=== PATIENT | female | born 1945 | race Hispanic/Latino ===

== ENCOUNTER → 2018-11-16 | Outpatient (CLI) | payer OTHER | END | disposition home or self-care (01) | LOC: RAH 09:35 | PROVIDERS: ATTEND Surgery | DX: K80.20 Calculus of gallbladder without cholecystitis without obstruction (principal); M51.36 Other intervertebral disc degeneration, lumbar region; K43.9 Ventral hernia without obstruction or gangrene | CPT/HCPCS: 74176 ==

== ENCOUNTER 2023-04-13 04:51 | Observation (INO) | payer MEDICARE ==
[2023-04-08 11:25] VITALS: BP 161/65; PULSE 65; RESP 12
[2023-04-13] VITALS (25 sets, daily range): BP systolic 111–167; BP diastolic 52–85; PULSE 55–88; RESP 14–19
[~2023-04-13] VITALS: Ht 162.6 cm; Wt 107.5 kg
[~2023-04-13 04:51] MED LIST: GABA-529 PO; OMEP20CA12 PO; OXYB5TAB20 PO
[2023-04-13] MEDS ORDERED: LACTATED RINGERS 1000ML 1,000 ML IV ONE (05:23)
[2023-04-13] MEDS ORDERED: CEFAZOLIN SODIUM 2 GM VIAL ONE (05:24)
[2023-04-13] MEDS ORDERED: 0.9%NACL 100ML 48.45 ML, ROPIVACAINE 0.5% 5MG/ML 30ML 246.25 MG, KETOROLAC TROMETHAMINE... IV PRN ×5 (07:30)
[2023-04-13] MEDS ORDERED: MIDAZOLAM HCL 1 MG/ML 2ML VIAL ONE ×2 (08:32→10:31)
[2023-04-13] MEDS ORDERED: PROPOFOL 10 MG/ML 20ML VIAL IV ONE (08:33)
[2023-04-13] MEDS ORDERED: FENTANYL CITRATE PF 50 MCG/1 ML 2ML VIAL ONE (08:33)
[2023-04-13] MEDS ORDERED: ONDANSETRON 4MG INJ ONE (08:36)
[2023-04-13] MEDS ORDERED: DEXAMETHASONE SOD PHOSPHATE 10MG/ML 1ML VIAL ONE (08:37)
[2023-04-13] MEDS ORDERED: TRANEXAMIC ACID 1000MG/10ML ONE (09:51)
[2023-04-13] MEDS ORDERED: CEFAZOLIN SODIUM 1 GM VIAL ONE (09:52)
[2023-04-13] MEDS ORDERED: GENTAMICIN SULFATE 80 MG/2 ML VIAL ONE (09:52)
[2023-04-13] MEDS ORDERED: DIPHENOXYLATE HCL/ATROPINE 2.5/0.025 MG TAB PO PRN (15:00)
[2023-04-13] MEDS ORDERED: ACETAMINOPHEN WITH CODEINE 1 TAB TAB PO PRN (15:00)
[2023-04-13] MEDS ORDERED: MAG/ALUM/SIMETH 30 ML UDCUP PO PRN (15:00)
[2023-04-13] MEDS ORDERED: LACTULOSE 20 GM/30 ML UDCUP PO PRN (15:00)
[2023-04-13] MEDS ORDERED: BENZOCAINE/MENTH/CETYLPYRD CL 1 EACH LOZENGE MM PRN (15:00)
[2023-04-13] MEDS: 0.9%NACL 1000ML 1,000 ML IV SCH (15:00)
[2023-04-13] MEDS ORDERED: DIPHENHYDRAMINE HCL 25 MG CAPSULE PO PRN (15:00)
[2023-04-13] MEDS ORDERED: ACETAMINOPHEN 325 MG TAB PO PRN ×2 (15:00)
[2023-04-13] MEDS ORDERED: ONDANSETRON 4MG INJ IVP PRN (15:00)
[2023-04-13] MEDS ORDERED: TRAMADOL HCL 50 MG TABLET PO PRN (15:00)
[2023-04-13] MEDS: HYDROMORPHONE PCA 10 MG/50 ML 50 ML IV PRN ×2 (19:17→19:18)
[2023-04-13] MEDS ORDERED: DEXTROSE 50%-WATER 50 ML DISP.SYRIN IV PRN (20:30)
[2023-04-13] MEDS ORDERED: GLUCAGON 1MG KIT 1 MG ML IM PRN (20:30)
[2023-04-13] MEDS ORDERED: INSULIN HUMULIN R 100 UNIT/ML 3ML SQ SCH (21:00)
[2023-04-13] MEDS: CEFAZOLIN SODIUM 2 GM VIAL IVPB SCH (22:38)
[2023-04-14 00:05] VITALS: BP 121/53; PULSE 61; RESP 18
[2023-04-14] MEDS: CEFAZOLIN SODIUM 2 GM VIAL IVPB SCH (03:39)
[2023-04-14] MEDS: 0.9%NACL 1000ML 1,000 ML IV SCH ×2 (03:43→09:18)
[2023-04-14 03:59] VITALS: BP 119/53; PULSE 66; RESP 18
[2023-04-14 05:44] LABS: HEMATOCRIT 36.2 % (36-48); MEAN CORPUSCULAR HEMOGLOBIN 30.4 pg (27.0-33.0); MEAN CORPUSCULAR HGB CONC 32.6 g/dL (32.0-36.0); MEAN CORPUSCULAR VOLUME 93.3 fL (79-99); RED BLOOD CELL COUNT(AUTO) 3.88 MIL/uL (4.00-5.50); RED CELL DISTRIBUTION WIDTH 12.5 % (11.0-15.5); WHITE BLOOD COUNT (AUTO) 11.5 K/uL (4.8-10.8)
[2023-04-14 05:50] LABS: CREATININE 0.7 mg/dL (0.5-1.5); POTASSIUM 3.8 mmol/L (3.5-5.1)
[2023-04-14 08:00] VITALS: BP 117/67; PULSE 81; RESP 18; O2SAT 94
[2023-04-14] MEDS: HYDROCODONE/ACETAMINOPHEN 5/325 MG TAB PO PRN ×2 (08:56→14:40)
[2023-04-14 11:35] VITALS: BP 110/53; PULSE 65; RESP 18
[2023-04-14 16:00] VITALS: BP 105/50; PULSE 79; RESP 18
== END 2023-04-14 19:45 | disposition home health service (06) ==
LOC: DAH 04:51 → 4BH 04:52 → DAH 04:52
PROVIDERS: ADMIT Orthopaedic Surgery; ATTEND Orthopaedic Surgery
DX: M17.11 Unilateral primary osteoarthritis, right knee (principal); E66.01 Morbid (severe) obesity due to excess calories; E11.9 Type 2 diabetes mellitus without complications; E78.00 Pure hypercholesterolemia, unspecified; K21.9 Gastro-esophageal reflux disease without esophagitis; M25.561 Pain in right knee; M81.0 Age-related osteoporosis without current pathological fracture; Z68.41 Body mass index [BMI] 40.0-44.9, adult; Z96.651 Presence of right artificial knee joint; Z98.84 Bariatric surgery status; Z98.891 History of uterine scar from previous surgery; Z79.899 Other long term (current) drug therapy; Z98.890 Other specified postprocedural states
CPT/HCPCS: 87641; 27447; 96365; 96375; 97161; 97012; 96366; 80048; 85027; 36415; 97116 ×2; 97530; A6260; G0378 ×28; G0379; A4663; J7120 ×2; A4215 ×2; A4649 ×4; J3010; J0690 ×4; J3490; J1170; J1100; J1580; J2250 ×2; J2704; J2405; A6223; C1763 ×2; C1776; A5120; A4223; A4222; A4221; A6450; J7030; A4510; 97039

== ENCOUNTER → 2023-06-10 | Outpatient (CLI) | payer MEDICARE ==
[2023-06-10 21:54] VITALS: PULSE 66; RESP 12
[2023-06-10 22:32] VITALS: PULSE 55; RESP 14
[2023-06-10 23:02] VITALS: PULSE 64; RESP 18
[2023-06-10 23:34] VITALS: PULSE 78; RESP 12
[2023-06-11] VITALS (11 sets, daily range): PULSE 56–71; RESP 10–20
== END | disposition home or self-care (01) ==
LOC: SLP 10:00
PROVIDERS: ATTEND Family Medicine
DX: G47.33 Obstructive sleep apnea (adult) (pediatric) (principal); E66.01 Morbid (severe) obesity due to excess calories; Z68.43 Body mass index [BMI] 50.0-59.9, adult
CPT/HCPCS: 95810

== ENCOUNTER → 2023-08-19 | Outpatient (CLI) | payer MEDICARE ==
[2023-08-19] VITALS (8 sets, daily range): PULSE 57–67; RESP 13–23
[2023-08-20] VITALS (13 sets, daily range): PULSE 55–63; RESP 11–18
== END | disposition home or self-care (01) ==
LOC: SLP 20:35
PROVIDERS: ATTEND Family Medicine
DX: G47.33 Obstructive sleep apnea (adult) (pediatric) (principal)
CPT/HCPCS: 95811

== ENCOUNTER → 2024-06-28 | Outpatient (CLI) | payer MEDICARE ==
--- NOTE | 2024-06-28 15:24 | HMCIMG ---
THORACIC SPINE 2VWS REASON: THORACIC BACK PAIN COMPARISON: None. TECHNIQUE: 2 images were obtained. FINDINGS: There are mild anterior and right lateral osteophyte. Interspace heights are preserved. Alignment is normal. There are no compression or other fractures. Stranding soft tissues appear normal. IMPRESSION: 1. Mild thoracic degenerative change, no acute finding.
--- NOTE | 2024-06-28 15:24 | HMCIMG ---
EXAM: LUMBAR SPINE 2-3VWS REASON: LBP. COMPARISON: None. TECHNIQUE: 2 views of the lumbar spine were obtained. FINDINGS: There is 5 mm anterior subluxation of L3 in relation to L2. There is mild interspace narrowing at L1-2, L2-3 and at L5-S1. Alignment is otherwise normal. There are some degenerative changes in the facets. There are no compression or other fractures. Soft tissues appear unremarkable. IMPRESSION: 1. Moderate lumbar degenerative changes, there is also 5 mm anterior subluxation of L3 in relation to L2.
== END | disposition home or self-care (01) ==
LOC: RAH 14:42
PROVIDERS: ATTEND Internal Medicine
DX: S33.120A Subluxation of L2/L3 lumbar vertebra, initial encounter (principal); M47.814 Spondylosis without myelopathy or radiculopathy, thoracic region; M85.88 Other specified disorders of bone density and structure, other site; M54.6 Pain in thoracic spine; M47.816 Spondylosis without myelopathy or radiculopathy, lumbar region; M54.50 Low back pain, unspecified; X58.XXXA Exposure to other specified factors, initial encounter; Y93.89 Activity, other specified; Y92.89 Other specified places as the place of occurrence of the external cause; Y99.8 Other external cause status
CPT/HCPCS: 72070; 72100

== ENCOUNTER → 2025-01-02 | Outpatient (CLI) | payer MEDICARE ==
--- NOTE | 2025-01-03 11:33 | HMCIMG ---
CHEST 2VWS REASON: PRE-OP EXAM FOR INTERNAL MEDICINE COMPARISON: None FINDINGS: Two views of the chest were obtained. Lungs are clear. Heart size is normal. There is no pulmonary vascular congestion. Mediastinum and bony thorax appear unremarkable. IMPRESSION: Normal two view chest x-ray.
== END | disposition home or self-care (01) ==
LOC: RAH 13:40
PROVIDERS: ATTEND Internal Medicine
DX: Z01.818 Encounter for other preprocedural examination (principal)
CPT/HCPCS: 71046

== ENCOUNTER → 2025-01-16 | Outpatient (CLI) | payer MEDICARE ==
--- NOTE | 2025-01-16 19:41 | HMCIMG ---
ANKLE 2VWS RT HISTORY: Puncture wound COMPARISON: None TECHNIQUE: 2 images of the right ankle were obtained. FINDINGS: There is no acute displaced fracture or dislocation. There is soft tissue swelling. There is a calcaneal spur. No evidence of radiopaque foreign body is seen. Degenerative changes are seen. IMPRESSION: 1. Findings as described above.
== END | disposition home or self-care (01) ==
LOC: RAH 15:02
PROVIDERS: ATTEND Internal Medicine
DX: S91.031A Puncture wound without foreign body, right ankle, initial encounter (principal); M19.071 Primary osteoarthritis, right ankle and foot; M77.31 Calcaneal spur, right foot; M79.89 Other specified soft tissue disorders; X58.XXXA Exposure to other specified factors, initial encounter; Y93.89 Activity, other specified; Y92.89 Other specified places as the place of occurrence of the external cause; Y99.8 Other external cause status
CPT/HCPCS: 73600

== ENCOUNTER → 2025-06-07 | Outpatient (CLI) | payer MEDICARE ==
--- NOTE | 2025-06-07 15:50 | HMCIMG ---
EXAM: US for Deep Venous Thrombosis, bilateral Lower Extremity. CLINICAL HISTORY: Leg Pain and Swelling TECHNIQUE: Real-time ultrasound scan of the veins of the bilateral lower extremity with color Doppler flow, spectral waveform analysis and compression. COMPARISON: None provided. FINDINGS: DEEP VEINS: The common femoral, superficial femoral, and popliteal veins are echolucent and compressible. There is normal color Doppler flow throughout. The visualized calf veins appear patent. SOFT TISSUES: No popliteal fossa cyst or other abnormalities. IMPRESSION: 1. No evidence of deep venous thrombosis in the bilateral lower extremities. /[place]
== END | disposition home or self-care (01) ==
LOC: RAH 07:43
PROVIDERS: ATTEND Internal Medicine
DX: I82.403 Acute embolism and thrombosis of unspecified deep veins of lower extremity, bilateral (principal); M79.604 Pain in right leg; M79.605 Pain in left leg
CPT/HCPCS: 93970

== ENCOUNTER → 2025-06-26 | Outpatient (CLI) | payer MEDICARE ==
[~2025-06-26] MED LIST changes: +LANS30CA55 PO; +MELATONIN PO; +MELO-108 PO; +RISE35TA12 PO; +TYLENOL ARTHRITIS PO
--- NOTE | 2025-06-26 19:35 | HMCIMG ---
STUDY: X-RAY OF THE CHEST, 2 VIEWS HISTORY: Pre-operative examination for internal medicine. TECHNIQUE: PA and lateral views of the chest are submitted for interpretation. COMPARISON: None provided. FINDINGS: Pulmonary edwards: Left basilar airspace opacity is present, which may represent atelectasis and/or early pneumonia in the appropriate clinical setting. The right lung is clear. No overt pulmonary edema is identified. No pleural-based mass or pneumothorax is seen. Cardiac silhouette: Cardiac silhouette is within normal limits in size and contour. Mediastinum and [place]: Mediastinal contours and hilar structures are within normal limits without evidence of mediastinal widening or discrete hilar mass. Osseous structures: Visualized ribs, clavicles, scapulae, and thoracic spine demonstrate no acute displaced fracture or destructive osseous lesion. Miscellaneous: Costophrenic angles are sharp on the right and mildly obscured on the left due to the adjacent basilar opacity; a very small left pleural effusion cannot be excluded. No subdiaphragmatic free air is identified. No indwelling lines or tubes are seen. IMPRESSION: * Left basilar airspace opacity, most likely representing atelectasis or early infectious/inflammatory airspace disease; correlate with clinical symptoms, auscultatory findings, and inflammatory markers. * No radiographic evidence of pulmonary edema, sizable pleural effusion, or pneumothorax. * Cardiac silhouette is normal in size and contour without radiographic cardiomegaly. * No acute osseous abnormality of the visualized bony thorax. * From a thoracic imaging standpoint, there is no contraindication to proceeding with surgery; however, if the patient has respiratory symptoms or systemic signs of infection, clinical assessment should determine whether further evaluation (such as short-interval follow-up chest radiograph or chest CT) or perioperative modification is warranted. /[place]
== END | disposition home or self-care (01) ==
LOC: RAH 16:16
PROVIDERS: ATTEND Internal Medicine
DX: Z01.818 Encounter for other preprocedural examination (principal)
CPT/HCPCS: 71046

== ENCOUNTER 2025-07-03 06:24 | Observation (INO) | payer MEDICARE ==
--- NOTE | 2025-06-27 15:55 | EKG ---
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
[2025-06-27 16:00] VITALS: BP 141/65; PULSE 67; RESP 14; TEMP 97.9
--- NOTE | 2025-06-27 16:16 | NUR ---
PREOP ZBIGNIEW VORA INSTRUCTED PT ON INCENTIVE SPIROMETRY
--- NOTE | 2025-06-28 13:07 | NUR ---
RE: EKG reported ekg results to dr mendieta, no new orders received.
[~2025-07-03] VITALS: Ht 162.6 cm; Wt 108.9 kg
[2025-07-03] VITALS (25 sets, daily range): BP systolic 120–170; BP diastolic 50–88; PULSE 58–74; RESP 16–20; TEMP 97–98; O2SAT 90–96
[2025-07-03] MEDS ORDERED: LIDOCAINE HCL MPF 1% 5ML VIAL ONE (07:42)
[2025-07-03] MEDS ORDERED: MIDAZOLAM HCL 1 MG/ML 2ML VIAL ONE (07:43)
[2025-07-03] MEDS: LACTATED RINGERS 1000ML 1,000 ML IV ONE (08:13)
[2025-07-03] MEDS: TRANEXAMIC ACID 1000MG/10ML ONE (09:10)
[2025-07-03] MEDS ORDERED: PROMETHAZINE HCL 25 MG/ML 1ML AMPULE IM PRN (09:30)
[2025-07-03] MEDS: TRANEXAMIC ACID 1000MG/10ML IV ONE ×2 (10:57)
[2025-07-03] MEDS ORDERED: NEOSTIGMINE METHYLSULFATE 1MG/ML IV ONE (11:03)
[2025-07-03] MEDS ORDERED: GLYCOPYRROLATE 0.2 MG/ML 5 ML VIAL ONE (11:03)
[2025-07-03] MEDS ORDERED: MELOXICAM 7.5 MG TABLET PO PRN (11:30)
[2025-07-03] MEDS ORDERED: RISEDRONATE SODIUM 35 MG PO SCH (11:30)
[2025-07-03] MEDS ORDERED: PoTASSium chloRIDE 20MEQ ER 20 MEQ ERTAB PO PRN (11:30)
[2025-07-03] MEDS ORDERED: PoTASSium chl 10% ELIXIR 20MEQ 20 MEQ/15 ML UDCUP PO PRN (11:30)
--- NOTE | 2025-07-03 13:00 | NUR ---
RECIEVED PACU TOTAL LEFTKNEE SRINIVAS WRAP INTACT CLEAN DRY RESPONSIVE TO VERBAL COMMAND ALERT CALL HICKEY WITH IN REACH
--- NOTE | 2025-07-03 13:25 | HMCIMG ---
EXAM: CR Left Knee, 2 View. CLINICAL HISTORY: S/P LEFT TKA SURGERY COMPARISON: None provided. FINDINGS: Left total knee arthroplasty in near anatomic alignment. No periprosthetic fracture appreciated. Appropriate postsurgical changes within the distal thigh and proximal leg. IMPRESSION: 1. Left total knee arthroplasty in near anatomic alignment without periprosthetic fracture. /[place]
[2025-07-03] MEDS: 0.9%NACL 1000ML 1,000 ML IV SCH (13:38)
--- NOTE | 2025-07-03 14:45 | OP ---
Operative Note: DATE OF PROCEDURE: 07/03/25 PREOPERATIVE DIAGNOSIS: Left knee osteoarthritis. POSTOPERATIVE DIAGNOSIS: Left knee osteoarthritis. PROCEDURE PERFORMED: Left knee total knee arthroplasty. SURGEON: Jennifer Drake MD COMMUNICATIONS ASSISTANT: January Lewis. ANESTHESIA: General with adductor canal block. ANESTHESIA: WES Singer. ESTIMATED BLOOD LOSS: 50cc. COMPLICATIONS: None. DRAINS: None. SPECIMENS REMOVED: resected bone. Not sent to pathology. IMPLANTS: [employer] II BCS size 6 Oxinium femur, size 4 tibial base plate, 32 mm patella, 9 mm polyethylene STATEMENT OF MEDICAL NECESSITY: The patient is a 79-year-old female who suffers from left knee osteoarthritis failing conservative management. After discussion of the risks, benefits, and alternatives with the patient, they voluntarily agreed to undergo the aforementioned procedure. DESCRIPTION OF PROCEDURE: Patient was properly identified in the preoperative holding area. Surgical site marking was verified and surgery consent reviewed. The patient was then taken to the operating room and placed in supine position o n the OR table. After induction of general anesthesia, preoperative antibiotics were given, all bony prominences were well-padded, and a well padded tourniquet was applied but not inflated at this time. The left lower extremity was then prepped and draped in usual sterile fashion. Surgical time out was done verifying correct surgery, side, site, and location to be performed. We then began the procedure by exsanguinating the limb using an Esmarch and inflating the tourniquet to 350 mmHg. At this point, we made an anterior midline incision using a 10 blade, coming down sharply the level of the fascia. Skin flaps were elevated medially and laterally. We then obtained a clean 10 blade and performed a standard medial parapatellar arthrotomy. We excised the infrapatellar fat pad. We performed our soft tissue releases off of the tibia. We transected the ACL and removed the anterior portion of the medial & lateral meniscus. We then brought the knee into hyperflexion with the patella everted. We used our entry reamer to enter the femoral canal. We then placed our intramedullary cutting guide for our distal femoral cutting block. We then performed our distal femoral osteotomy ensuring appropriate rotation and removed the bony wafer. However, secondary to inadequate distal femoral resection, we elected to go ahead and take +2 mm this time. We then removed these pins and block and then used jig 2 to size the distal femur with the after mentioned size found. We then placed our 5-in-1 cutting block in 3 degrees of external rotation and took our 5 cuts ensuring to protect the patellar tendon and the collateral ligaments. We then removed the cutting block and our bony fragments using a curved osteotome. We then placed our PCL retractor subluxating the tibia anteriorly. Using an extra medullary tibial cutting guide, we hung the block for our proximal tibial cut taking 2 mm off the more diseased portion. Prior to pinning this block in place, we ensured appropriate varus/valgus alignment and posterior slope similar to the koi slope of the patient's knee. We then performed our proximal tibial osteotomy and removed the bony wafer using Bovie electrocautery to release any remaining soft tissue attachments. We then used our tibial sizing paddle and checked once more for varus & valgus alignment and found this to be appropriate. At this point, we pinned our tibial paddle in place. We then removed the PCL retractor and subluxated the tibia posteriorly while we placed our femoral trial component. We then finished preparing the notch with the reamer and box chisel. The notch portion of the trial femoral component was then placed. A posterior stabilized polyethylene, size 9 trial was placed. The knee was then taken through range of motion and found to have stable full range of motion. We then placed a bump under the ankle and everted the patella to perform our freehand cut of the undersurface the patella. We then sized our patella and reamed to the lug holes for this. We placed our trial patellar component and begin to take the knee through range of motion. The patella had significant lateral tracking with the improvement after a large lateral release. At this point we began removing our trial components and punched the tibial keel prior to removing our tibial trial component. Final components were opened and cement was mixed on the back table while we injected local cocktail in the posterior capsule. We then thoroughly irrigated out the bone and dried the bony surfaces. We cemented our tibial component in place ensuring to remove excess cement and placed our trial polyethylene. We then cemented our femoral component in place once again taking time to ensure excess cement was removed leg was brought into full extension to help squeeze the excess cement from around the femoral component. We then brought the knee back in a flexion to remove this portion of the cement at this point we placed the ankle in a bump thoroughly irrigated off the patellar component and cemented our patellar component in standard fashion again removing excess cement. While we waited for the cement to cure, we thoroughly irrigated out the wound with normal saline. Once our cement had cured, we took the knee through a range of motion and found full and stable range of motion. We then elected to use the size 9 polyethylene and removed our trial polyethylene. We impacted our final polyethylene component in place in standard fashion and took the knee through a range of motion check once more. This was satisfactory so we began to repair the arthrotomy using #5 Ethibond and #1 Vicryl in interrupted [id number] fashion. Subcutaneous tissue was repaired using 2-0 Vicryl. Running subcuticular 3-0 Monocryl stitch with Dermabond placed over this for the skin. We then applied a foam barrier dressing and a pressure dressing consisting of 4 x 4's fluffs and an Zane wrap. The tourniquet was then deflated. Patient was awakened from anesthesia, and they were taken to the recovery room in stable condition. JENNIFER DRAKE MD Jul 03, 2025 14:45
[2025-07-03] MEDS: HYDROcodone/APAP 5/325 1 TAB TABLET PO PRN (15:28)
--- NOTE | 2025-07-03 15:30 | NUR ---
ORTHO COORDINATOR: RESPIRATORY THERAPY IN ROOM. LEFT UNDISTURBED.
[2025-07-03] MEDS: CYCLOBENZAPRINE HCL 10 MG TABLET PO PRN (21:33)
[2025-07-04] VITALS: BP 115/61; PULSE 59; RESP 18; TEMP 98.1
[2025-07-04 04:00] VITALS: BP 130/62; PULSE 60; RESP 19; TEMP 97.9
[2025-07-04 04:43] LABS: NUCLEATED RED BLOOD CELLS 0.0 % (0.0-0.19); PLATELET COUNT (AUTO) 218.0 K/uL (130-400); RED BLOOD CELL COUNT(AUTO) 3.68 MIL/uL (4.00-5.50); RED CELL DISTRIBUTION WIDTH 12.4 % (11.0-15.5); WHITE BLOOD COUNT (AUTO) 10.8 K/uL (4.8-10.8)
[2025-07-04 04:53] LABS: CREATININE 0.7 mg/dL (0.5-1.0); GLOMERULAR FILTR. RATE CALC 89.0 mL/min (>90); GLUCOSE,RANDOM 100.0 mg/dL (70-105); SODIUM SERUM 138.0 mmol/L (136-145); UREA NITROGEN, BLOOD 15.0 mg/dL (7-18)
[2025-07-04 07:00] VITALS: O2SAT 96
--- NOTE | 2025-07-04 07:20 | PN ---
PROGRESS NOTE PROGRESS NOTE DATE OF PROGRESS NOTE: 07/04/25 SUBJECTIVE: Status post knee replacement doing well VITAL SIGNS Vital Signs Date Time Temp Pulse Resp B/P (MAP) Pulse Ox O2 Delivery O2 Flow Rate FiO2 07/04/25 07:00 96 Room Air* 0 21 07/04/25 04:00 97.9 60 19 130/62 PHYSICAL EXAM: HEENT atraumatic normocephalic head Neck is supple Lungs are clear to auscultation percussion Heart was S1-S2 heard no murmur Extremities no pedal edema Skin exam unremarkable LABORATORY: Laboratory Result(s) Test 07/04/25 04:05 White Blood Count 10.8 K/uL (4.8-10.8) Red Blood Count 3.68 MIL/uL (4.00-5.50) Hemoglobin 11.2 g/dL (12.0-16.0) Hematocrit 33.9 % (36-48) Mean Corpuscular Volume 92.1 fL (79-99) Mean Corpuscular Hemoglobin 30.4 pg (27.0-33.0) Mean Corpuscular Hemoglobin Concent 33.0 g/dL (32.0-36.0) Red Cell Distribution Width 12.4 % (11.0-15.5) Platelet Count 218 K/uL (130-400) Mean Platelet Volume 8.9 fL (7.5-10.5) Nucleated Red Blood Cells 0.0 % (0.0-0.19) Sodium Level 138 mmol/L (136-145) Potassium Level 4.1 mmol/L (3.5-5.1) Chloride Level 105 mmol/L (101-111) Carbon Dioxide Level 28 mmol/L (21-32) Blood Urea Nitrogen 15 mg/dL (7-18) Creatinine 0.7 mg/dL (0.5-1.0) Glomerular Filtration Rate Calc 89 mL/min (>90) Random Glucose 100 mg/dL (70-105) Total Calcium 7.9 mg/dL (8.5-10.1) INPATIENT MEDS: Current Medications Medications Dose Ordered Sig/Jaron Start Time Stop Time Status Last Admin Sodium Chloride 1,000 ml @ 100 mls/hr Q10H 07/03/25 11:30 07/04/25 11:29 07/04/25 04:22 Polyethylene Glycol 17 gm DAILY 07/04/25 09:00 08/03/25 08:59 Bisacodyl 10 mg DAILY PRN 07/06/25 11:30 08/05/25 11:29 Ketorolac Tromethamine 15 mg Q6H PRN 07/04/25 11:30 07/09/25 11:29 Ferrous Fumarate 324 mg DAILY PRN 07/03/25 11:30 08/02/25 11:29 Ondansetron HCl 4 mg Q6H PRN 07/03/25 11:30 08/02/25 11:29 Calcium Carbonate 500 mg Q12H PRN 07/03/25 11:30 08/02/25 11:29 Cyclobenzaprine HCl 5 mg Q8H PRN 07/03/25 11:30 08/02/25 11:29 07/03/25 21:33 Gabapentin 100 mg TID 07/03/25 14:00 08/02/25 13:59 07/03/25 21:33 Aspirin 325 mg DAILY 07/04/25 09:00 08/03/25 08:59 Docusate Sodium 100 mg BID 07/03/25 21:00 08/02/25 20:59 07/03/25 21:33 Potassium Chloride 100 ml @ 100 mls/hr AD PRN 07/03/25 11:30 08/02/25 11:29 Potassium Chloride 20 meq AD PRN 07/03/25 11:30 08/02/25 11:29 Potassium Chloride 20 meq AD PRN 07/03/25 11:30 08/02/25 11:29 Tramadol HCl 50 mg Q6H PRN 07/03/25 11:30 07/08/25 11:29 Acetaminophen/ Hydrocodone Bitart Q4H PRN 07/03/25 11:30 07/08/25 11:29 07/03/25 21:34 Meloxicam 15 mg DAILY PRN 07/03/25 11:30 08/02/25 11:29 Home Med WEEKLY 07/03/25 11:30 08/02/25 11:29 Home Med HS PRN 07/03/25 11:30 08/02/25 11:29 Pantoprazole Sodium 40 mg DAILY 07/04/25 09:00 08/03/25 08:59 PLAN: Hypertension resume same home medication postop pain supportive treatment discharged once cleared by EDUARDO Verduzco MD Jul 04, 2025 07:20
[2025-07-04] MEDS: FERROUS FUMARATE 324 MG TABLET PO PRN (07:33)
[2025-07-04] MEDS: ASPIRIN 325MG EC TAB PO SCH (07:34)
[2025-07-04 08:00] VITALS: BP 128/70; PULSE 70; RESP 16; TEMP 98.3
--- NOTE | 2025-07-04 11:10 | NUR ---
DCP CM MET WITH PT THIS MORNING, INITIAL ASSESSMENT DONE. PATIENT IS INDEPENDENT PRIOR TO SURGERY, LIVES AT HOME WITH SPOUSE. 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 DENIES ANY OTHER EQUIPMENT/SERVICES. FEELS SAFE TO GO BACK HOME, STILL DRIVE, ABLE TO ASSIST WITH TRANSPORTATION AND NEEDS NECESSARY. DISCUSSED MD RECOMMENDATIONS FOR HOME W/HH PT ALREADY HAS DME, PT AGREEABLE, CONSENT SIGNED CARMEN FOR ANY IN NETWORK HH. DCP HOME W/HH ONCE APPROVED. CM TO CONTINUE TO FOLLOW UP.
[2025-07-04] MEDS: CALCIUM CARB 500MG PO PRN (11:39)
[2025-07-04 12:00] VITALS: BP 100/51; PULSE 66; RESP 16; TEMP 98.3
--- NOTE | 2025-07-04 14:11 | NUR ---
dc sl to lac cath intact dressing to removal site to [facility] dc instructions given verbal understanding dc papers signed [facility] awaiting [facility]
[2025-07-04 16:00] VITALS: BP 129/63; PULSE 76; RESP 18; TEMP 98.3
--- NOTE | 2025-07-04 16:45 | NUR ---
ORTHO COORDINATOR: TEACHING REGARDING DVT AND PNEUMONIA PREVENTION, PAIN EXPECTATIONS AND PAIN MANAGEMENT. PATIENT UP TO CHAIR, EATING DINNER, SPOUSE AT BEDSIDE. DRESSING TO L KNEE CLEAN, DRY AND INTACT. PATIENT RETURN DEMONSTRATED PROPER USE OF INCENTIVE SPIROMETER AND VERBALIZED PROPER FREQUENCY OF USE. PATIENT RETURN DEMONSTRATED PROPER FOOT FLEXION AND EXTENSION EXERCISES, RATIONALE FOR PERFORMING REVIEWED. PATIENT INTENDS TO DISCHARGE HOME WITH HOME HEALTH. HOME HEALTH PROCESS EXPLAINED. PATIENT ENCOURAGED TO CONTINUE PREMEDICATING PRIOR TO PHYSICAL THERAPY AND PERIODS OF HIGH ACTIVITY, TO CONTINUE USE OF INCENTIVE SPIROMETER UNTIL PRESURGERY ACTIVITY LEVELS ACHIEVED, TO CONTINUE TO INCREASE ACTIVITY, KEEP HYDRATED AND ICE SURGICAL SITE. PATIENT INFORMED DISCHARGE INSTRUCTIONS WILL HAVE THE DATE THE DRESSING IS TO BE REMOVED. PATIENT AND FEEL COMFORTABLE REMOVING DRESSING. SHOWERING AND INCISION CARE REVIEWED. PATIENT VERBALIZED UNDERSTANDING TO ALL INSTRUCTIONS. NO ADDITIONAL QUESTIONS OR CONCERNS AT THIS TIME.
--- NOTE | 2025-07-04 17:38 | NUR ---
dc sl to lh cath intact dressing to removal site josé well dc instructions given verbal understanding dc papers signed escorted off unit via wc to front of hospital stable cond,
--- NOTE | 2025-07-04 19:18 | PN ---
Ortho POD 1 - late entry seen around noon Doing well. Reports pain controlled. Reports incontinent voiding at time of bathing. Tolerating PO. Denies BM or calf pain. Denies passing gas vss,af nad, A&Ox3 nonlabored breathing resting comfortably reclined in bed at the time of my visit. left knee dressing c/d/i with mild ecchymosis and moderate edema tolerates full extension with cueing calf soft NT/neg homans H&H: Calcium 7.9 DCP is for HHPT with APC accepted Ambulated 25 ft with PT yesterday POD 1 s/p L TKA doing well asymptomatic acute blood loss anemia -correct calcium per protocol -encouraged IS and OOBTC -encouraged walking to move bowels -continue my routine post op plan for TKA Vitals/Labs Vital Signs Date Time Temp Pulse Resp B/P (MAP) Pulse Ox O2 Delivery O2 Flow Rate FiO2 07/04/25 16:00 98.2 76 18 129/63 96 Room Air 07/04/25 07:00 0 21 Laboratory Tests 07/04/25 04:05 Medications Current Medications Cefazolin Sodium 2 gm STK-MED ONCE .ROUTE Last administered on 07/03/25at 09:05; Start 07/03/25 at 06:30; Stop 07/03/25 at 06:30; Status DC Lactated Ringer's 1,000 ml @ As Directed STK-MED ONCE IV Last administered on 07/03/25at 08:13; Start 07/03/25 at 06:30; Stop 07/03/25 at 06:30; Status DC Lidocaine HCl 5 ml STK-MED ONCE .ROUTE; Start 07/03/25 at 07:42; Stop 07/03/25 at 07:42; Status DC Dexamethasone Sodium Phosphate 4 mg STK-MED ONCE .ROUTE; Start 07/03/25 at 07:42; Stop 07/03/25 at 07:42; Status DC Ondansetron HCl 4 mg STK-MED ONCE .ROUTE; Start 07/03/25 at 07:42; Stop 07/03/25 at 07:42; Status DC Midazolam HCl 2 mg STK-MED ONCE .ROUTE; Start 07/03/25 at 07:43; Stop 07/03/25 at 07:43; Status DC Propofol 200 mg STK-MED ONCE IV; Start 07/03/25 at 07:43; Stop 07/03/25 at 07:43; Status DC Rocuronium [place] 50 mg STK-MED ONCE .ROUTE; Start 07/03/25 at 07:44; Stop 07/03/25 at 07:44; Status DC Fentanyl Citrate 100 mcg STK-MED ONCE .ROUTE; Start 07/03/25 at 07:44; Stop 07/03/25 at 07:44; Status DC Ropivacaine 150 mg STK-MED ONCE .ROUTE; Start 07/03/25 at 07:47; Stop 07/03/25 at 07:47; Status DC Acetaminophen 100 ml @ As Directed STK-MED ONCE .ROUTE; Start 07/03/25 at 07:47; Stop 07/03/25 at 07:47; Status DC Tranexamic Acid 1,000 mg STK-MED ONCE .ROUTE Last administered on 07/03/25at 09:10; Start 07/03/25 at 08:18; Stop 07/03/25 at 08:18; Status DC Ketorolac Tromethamine 30 mg STK-MED ONCE .ROUTE Last administered on 07/03/25at 10:22; Start 07/03/25 at 08:19; Stop 07/03/25 at 08:19; Status DC Ropivacaine 150 mg STK-MED ONCE .ROUTE Last administered on 07/03/25at 10:22; Start 07/03/25 at 08:19; Stop 07/03/25 at 08:19; Status DC Ondansetron HCl 4 mg AD PRN IVP; Start 07/03/25 at 09:30; Stop 07/03/25 at 12:55; Status DC Metoclopramide HCl 10 mg AD PRN IVP; Start 07/03/25 at 09:30; Stop 07/03/25 at 12:55; Status DC Promethazine HCl 25 mg AD PRN IM; Start 07/03/25 at 09:30; Stop 07/03/25 at 12:55; Status DC Ketorolac Tromethamine 30 mg AD PRN IV; Start 07/03/25 at 09:30; Stop 07/03/25 at 12:55; Status DC Morphine Sulfate 2 mg AD PRN IVP; Start 07/03/25 at 09:30; Stop 07/03/25 at 12:55; Status DC Fentanyl Citrate 25 mcg Q5MIN PRN IVP Last administered on 07/03/25at 12:06; Start 07/03/25 at 09:30; Stop 07/03/25 at 12:55; Status DC Naloxone HCl 0.1 mg AD PRN IVP; Start 07/03/25 at 09:30; Stop 07/03/25 at 12:55; Status DC Tranexamic Acid 1,000 mg STK-MED ONCE IV; Start 07/03/25 at 00:00; Stop 07/03/25 at 00:01; Status Cancel Fentanyl Citrate 100 mcg STK-MED ONCE .ROUTE; Start 07/03/25 at 10:38; Stop 07/03/25 at 10:38; Status DC Tranexamic Acid 1,000 mg STK-MED ONCE IV Last administered on 07/03/25at 10:57; Start 07/03/25 at 10:57; Stop 07/03/25 at 10:58; Status DC Glycopyrrolate 1 mg STK-MED ONCE .ROUTE; Start 07/03/25 at 11:03; Stop 07/03/25 at 11:03; Status DC Neostigmine Methylsulfate 10 mg STK-MED ONCE IV; Start 07/03/25 at 11:03; Stop 07/03/25 at 11:03; Status DC Sodium Chloride 1,000 ml @ 100 mls/hr Q10H IV Last administered on 07/04/25at 04:22; Start 07/03/25 at 11:30; Stop 07/04/25 at 11:29; Status DC Polyethylene Glycol 17 gm DAILY PO Last administered on 07/04/25at 07:33; Start 07/04/25 at 09:00; Stop 07/04/25 at 18:11; Status DC Bisacodyl 10 mg DAILY PRN RC; Start 07/06/25 at 11:30; Stop 07/04/25 at 18:11; Status DC Ketorolac Tromethamine 15 mg Q6H PRN IV; Start 07/04/25 at 11:30; Stop 07/04/25 at 18:11; Status DC Ferrous Fumarate 324 mg DAILY PRN PO Last administered on 07/04/25at 07:33; Start 07/03/25 at 11:30; Stop 07/04/25 at 18:11; Status DC Ondansetron HCl 4 mg Q6H PRN IVP; Start 07/03/25 at 11:30; Stop 07/04/25 at 18:11; Status DC Calcium Carbonate 500 mg Q12H PRN PO Last administered on 07/04/25at 11:39; Start 07/03/25 at 11:30; Stop 07/04/25 at 18:11; Status DC Cefazolin Sodium 2 gm Q8H IVP Last administered on 07/03/25at 23:57; Start 07/03/25 at 16:30; Stop 07/04/25 at 00:31; Status DC Cyclobenzaprine HCl 5 mg Q8H PRN PO Last administered on 07/03/25at 21:33; Start 07/03/25 at 11:30; Stop 07/04/25 at 18:11; Status DC Gabapentin 100 mg TID PO Last administered on 07/04/25at 14:09; Start 07/03/25 at 14:00; Stop 07/04/25 at 18:11; Status DC Aspirin 325 mg DAILY PO Last administered on 07/04/25at 07:34; Start 07/04/25 at 09:00; Stop 07/04/25 at 18:11; Status DC Ketorolac Tromethamine 15 mg Q8H IV Last administered on 07/04/25at 03:19; Start 07/03/25 at 11:30; Stop 07/04/25 at 03:31; Status DC Docusate Sodium 100 mg BID PO Last administered on 07/04/25at 07:33; Start 07/03/25 at 21:00; Stop 07/04/25 at 18:11; Status DC Potassium Chloride 100 ml @ 100 mls/hr AD PRN IV; Start 07/03/25 at 11:30; Stop 07/04/25 at 18:11; Status DC Potassium Chloride 20 meq AD PRN PO; Start 07/03/25 at 11:30; Stop 07/04/25 at 18:11; Status DC Potassium Chloride 20 meq AD PRN PO; Start 07/03/25 at 11:30; Stop 07/04/25 at 18:11; Status DC Tramadol HCl 50 mg Q6H PRN PO; Start 07/03/25 at 11:30; Stop 07/04/25 at 18:11; Status DC Acetaminophen/ Hydrocodone Bitart Q4H PRN PO Last administered on 07/04/25at 16:48; Start 07/03/25 at 11:30; Stop 07/04/25 at 18:11; Status DC Meloxicam 15 mg DAILY PRN PO; Start 07/03/25 at 11:30; Stop 07/04/25 at 18:11; Status DC Home Med WEEKLY PO; Start 07/03/25 at 11:30; Stop 07/04/25 at 18:11; Status DC Home Med HS PRN PO; Start 07/03/25 at 11:30; Stop 07/04/25 at 18:11; Status DC Pantoprazole Sodium 40 mg DAILY PO Last administered on 07/04/25at 09:44; Start 07/04/25 at 09:00; Stop 07/04/25 at 18:11; Status DC Fentanyl Citrate 100 mcg STK-MED ONCE .ROUTE; Start 07/03/25 at 11:59; Stop 07/03/25 at 12:00; Status DC Ketorolac Tromethamine 15 mg STK-MED ONCE .ROUTE; Start 07/03/25 at 12:03; Stop 07/03/25 at 12:03; Status DC JAMES TONY MD Jul 04, 2025 19:18
== END 2025-07-04 17:45 | disposition home health service (06) ==
LOC: DAH 06:24 → DAHIP 06:25 → DAH 06:25 → UNDOADMOB 06:25 → 4BH 11:02 → DAHIP 13:01
PROVIDERS: ADMIT Student in an Organized Health Care Education/Training Program; ATTEND Student in an Organized Health Care Education/Training Program
DX: M17.12 Unilateral primary osteoarthritis, left knee (principal); M25.562 Pain in left knee; G47.30 Sleep apnea, unspecified; K21.9 Gastro-esophageal reflux disease without esophagitis; E03.9 Hypothyroidism, unspecified; E66.01 Morbid (severe) obesity due to excess calories; Z68.41 Body mass index [BMI] 40.0-44.9, adult; Z79.899 Other long term (current) drug therapy; Z98.890 Other specified postprocedural states
CPT/HCPCS: 84134; 86140; 36415 ×2; 93005; 87641; 27447; 96374; 96376 ×2; 96375; 64447; 73560; 97161; 97116 ×3; 97530 ×5; 80048; 85027; G0378 ×31; A4663; J7120 ×2; A4649 ×2; J3010 ×3; J3490 ×5; J2250; J2704; J2405; J1885 ×4; J2710; J1100; J2795 ×2; J0690 ×3; C1713 ×2; C1776 ×2; A6255; A5120; A4215; A4223 ×2; A4213; A4222; A4221; A4216